=== PATIENT | male | born 1990 | race Caucasian/White ===

== ENCOUNTER 2018-05-20 20:15 | Emergency (ER) | payer SELFPAY ==
[2018-05-20 20:29] VITALS: BP 117/90; PULSE 113; TEMP 98.1; BMI 30.7
--- NOTE | 2018-05-20 20:30 | PDOC ---
Rapid Medical Evaluation Time Seen by Provider: 05/20/18 20:28 Medical Evaluation: 05/20/18 20:28 I have performed a brief in-person evaluation of this patient. The patient presents with a chief complaint of: palpitations this evening. Patient reports eating alot of food and since then with discomfort in chest and palpitations Denies dizziness or shortness of breath. Reports history of anxiety Pertinent physical exam findings: NAD even and unlabored breathing flat affect non tender epigastric area I have ordered the following: ekg ordered The patient will proceed to the ED for further evaluation.
--- NOTE | 2018-05-21 15:06 | EKG ---
Test Reason : Blood Pressure : / mmHG Vent. Rate : 104 BPM Atrial Rate : 104 BPM P-R Int : 126 ms QRS Dur : 092 ms QT Int : 340 ms P-R-T Axes : 052 063 037 degrees QTc Int : 447 ms SINUS TACHYCARDIA OTHERWISE NORMAL ECG NO PREVIOUS ECGS AVAILABLE Confirmed by Zachary Salazar MD ([id number]) on 05/21/2018 3:05:57 PM Referred By: Confirmed By:Zachary Salazar MD
== END 2018-05-20 22:46 | disposition left against medical advice (07) ==
LOC: JER 20:15
DX: R00.2 Palpitations (principal)
CPT/HCPCS: 93005; 93010; 99281-25